=== PATIENT | female | born 1980 | race Caucasian/White ===

== ENCOUNTER 2016-06-27 00:08 | Emergency (ER) | payer OTHER ==
[~2016-06-27] VITALS: Ht 157.5 cm; Wt 65.9 kg
[~2016-06-27 00:08] MED LIST: AMOXICILLIN 8751 TAB PO; IMITREX100 MG PO; NORCO 325 MG-51 TAB PO; PHENERGAN 25 TA25 MG PO
[2016-06-27 00:11] VITALS: TEMP 97.6
[2016-06-27 00:45] LABS: BASO % 0.4 % (0.0-2.0); EOS # 0.3 (0.0-0.7); EOS % 2.9 % (0-4.0); GRAN % 49.7 % (42.2-75.2); LYMPH # 3.9 (1.2-3.4); LYMPH % 38.7 % (20.0-51.0); MEAN CELL VOLUME 84 fl (80.0-100.0); MEAN CORPUSCULAR HGB CONC 33 g/dl (33.0-37.0); MEAN PLATELET VOLUME 11.2 fl (7.4-10.4); MONO # 0.8 (0.1-0.6); PLATELET COUNT 224 K/mm3 (130-400); RED BLOOD COUNT 3.92 M/mm3 (4.10-5.30); REDCELL DISTRIBUTION WIDTH-CV 15.3 % (11.5-14.5); WHITE BLOOD COUNT 10.1 K/mm3 (4.8-10.8)
[2016-06-27 00:49] LABS: HEMATOCRIT 32.9 % (37.0-47.0); HEMOGLOBIN 10.7 g/dl (12.5-16.0); MEAN CORPUSCULAR HEMOGLOBIN 27 pg (27.0-31.0)
[2016-06-27 00:56] LABS: ADJUSTED CALCIUM 9.4 mg/dL (8.4-10.2); ALANINE AMINOTRANSFERASE 32 U/L (9-52); ALKALINE PHOSPHATASE 102 U/L (50-136); ANION GAP 12 mmol/L (7-16); BILIRUBIN,TOTAL 0.5 mg/dL (0.0-1.0); BLOOD UREA NITROGEN 11 mg/dL (7-17); CALCIUM 9.4 mg/dL (8.4-10.2); CARBON DIOXIDE 24 mmol/L (22-30); CHLORIDE 107 mmol/L (98-107); CREATININE, serum 0.59 mg/dL (0.52-1.25); GLUCOSE 97 mg/dL (74-106); LIPASE 88 U/L (23-300); POTASSIUM 3.6 mmol/L (3.4-5.0); SODIUM 143 mmol/L (137-145); TOTAL PROTEIN 7.5 gm/dL (6.4-8.2)
[2016-06-27 01:04] LABS: PH 5 (5-8); URINE APPEARANCE Hazy; URINE BACTERIA None Seen /hpf; URINE BILIRUBIN Negative (NEGATIVE); URINE BLOOD Negative (NEGATIVE); URINE COLOR Yellow; URINE GLUCOSE Negative (NEGATIVE); URINE KETONE Negative (NEGATIVE); URINE RBC 0-2 /hpf; URINE UROBILINOGEN Negative (NEGATIVE); URINE WBC 0-2 /hpf
[2016-06-27 01:51] VITALS: BP 121/81; PULSE 79
== END 2016-06-27 01:51 | disposition home or self-care (01) ==
LOC: COL.ER 00:08
PROVIDERS: Emergency Medicine
DX: R10.13 Epigastric pain (principal)
CPT/HCPCS: J1885; J2550; J7030

== ENCOUNTER 2016-06-29 11:48 | Emergency (ER) | payer OTHER ==
[~2016-06-29] VITALS: Ht 157.5 cm; Wt 78.6 kg
[2016-06-29 12:10] VITALS: BP 120/66; TEMP 97.7
[2016-06-29 13:37] LABS: BASO % 0.4 % (0.0-2.0); EOS # 0.1 (0.0-0.7); EOS % 1.7 % (0-4.0); GRAN # 4.3 (1.4-6.5); LYMPH # 2.6 (1.2-3.4); LYMPH % 34.2 % (20.0-51.0); MEAN CELL VOLUME 85 fl (80.0-100.0); MEAN CORPUSCULAR HGB CONC 32 g/dl (33.0-37.0); MEAN PLATELET VOLUME 10.8 fl (7.4-10.4); MONO # 0.5 (0.1-0.6); MONO % 6.4 % (1.7-9.3); PLATELET COUNT 236 K/mm3 (130-400); RED BLOOD COUNT 4.06 M/mm3 (4.10-5.30); WHITE BLOOD COUNT 7.6 K/mm3 (4.8-10.8)
[2016-06-29 13:39] LABS: HEMATOCRIT 34.3 % (37.0-47.0); HEMOGLOBIN 11.1 g/dl (12.5-16.0); MEAN CORPUSCULAR HEMOGLOBIN 27 pg (27.0-31.0)
[2016-06-29 13:46] LABS: ADJUSTED CALCIUM 9.3 mg/dL (8.4-10.2); ALBUMIN 4.3 gm/dL (3.5-5.0); BILIRUBIN,TOTAL 0.6 mg/dL (0.0-1.0); CALCIUM 9.5 mg/dL (8.4-10.2); CREATININE, serum 0.62 mg/dL (0.52-1.25); POTASSIUM 3.8 mmol/L (3.4-5.0); TOTAL PROTEIN 8.2 gm/dL (6.4-8.2)
[2016-06-29 14:06] LABS: PH 6 (5-8); SQUAMOUS EPITHELIAL 0-2 /hpf; URINE APPEARANCE Clear; URINE BACTERIA None Seen /hpf; URINE BILIRUBIN Negative (NEGATIVE); URINE BLOOD 3+ (NEGATIVE); URINE COLOR Yellow; URINE GLUCOSE Negative (NEGATIVE); URINE KETONE Negative (NEGATIVE); URINE RBC >50 /hpf; URINE UROBILINOGEN Negative (NEGATIVE)
[2016-06-29 15:47] VITALS: PULSE 66
== END 2016-06-29 15:47 | disposition home or self-care (01) ==
LOC: COL.ER 11:48
PROVIDERS: Family Medicine
DX: R10.11 Right upper quadrant pain (principal)
CPT/HCPCS: J2405; J7030

== ENCOUNTER 2016-09-04 18:59 | Emergency (ER) | payer OTHER ==
[~2016-09-04] VITALS: Ht 157.5 cm; Wt 63.6 kg
[2016-09-04 19:01] VITALS: BP 122/72; PULSE 85; TEMP 97.9
[2016-09-04] MEDS ORDERED: MAGIC MOUTH PO (19:41)
== END 2016-09-04 19:56 | disposition home or self-care (01) ==
LOC: COL.ER 18:59
DX: L01.00 Impetigo, unspecified (principal); B08.4 Enteroviral vesicular stomatitis with exanthem; F17.210 Nicotine dependence, cigarettes, uncomplicated

== ENCOUNTER 2016-10-08 22:46 | Emergency (ER) | payer OTHER ==
[~2016-10-08] VITALS: Ht 157.5 cm; Wt 65.9 kg
[~2016-10-08 22:46] MED LIST changes: +MAGIC MOUTH PO
[2016-10-08 22:50] VITALS: TEMP 97.8
[2016-10-08 23:57] VITALS: BP 128/68; PULSE 74
== END 2016-10-08 23:57 | disposition home or self-care (01) ==
LOC: COL.ER 22:46
DX: S00.85XA Superficial foreign body of other part of head, initial encounter (principal); W45.8XXA Other foreign body or object entering through skin, initial encounter